=== PATIENT | male | born 1995 | race Caucasian/White ===

== ENCOUNTER 2025-06-20 13:37 | Emergency (ER) | payer MEDICAID ==
[~2025-06-20] VITALS: Ht 172.7 cm; Wt 60.0 kg
[2025-06-20 13:49] VITALS: TEMP 36.7
[2025-06-20 15:34] LABS: BASOPHILS % 0.3 % (0.0-2.0); EOSINOPHILS % 4.8 % (0.0-5.0); HEMATOCRIT. 52.4 % (42.0-52.0); HEMOGLOBIN. 17.3 g/dL (14.0-18.0); LYMPHOCYTES % 14.7 % (20.0-50.0); MEAN PLATELET VOLUME 8.9 fl (7.4-10.4); MONOCYTES % 9.4 % (2.0-8.0); NEUTROPHILS % 70.8 % (40.0-76.0); PLATELET 160 x1000/uL (130-400); RED BLOOD CELL COUNT 6.01 mill/uL (4.7-6.1); RED CELL DISTRIBUTION WIDTH 12.8 % (11.6-14.6)
[2025-06-20] MEDS: IPRATROPIUM BROMIDE (0.02%) 0.5MG/2.5ML NEB HHN SCH (15:35)
[2025-06-20] MEDS: ALBUTEROL (0.083%) 2.5MG/3ML NEB HHN SCH (15:35)
[2025-06-20 15:37] VITALS: PULSE 95; RESP 17; O2SAT 97
[2025-06-20 15:51] LABS: CREATININE 0.9 mg/dL (0.6-1.3); PROTEIN TOTAL 8.4 g/dL (6.0-8.3); UREA NITROGEN BLOOD 7 mg/dL (9-23)
[2025-06-20 15:53] LABS: ASPARTATE AMINOTRANSFERASE 23 IU/L (<34); BILIRUBIN DIRECT 0.1 mg/dL (<=3.0); BILIRUBIN TOTAL 0.7 mg/dL (0.1-1.0)
[2025-06-20 16:04] VITALS: PULSE 98; RESP 16; O2SAT 100
[2025-06-20] MEDS: DEXAMETHASONE 4MG TABLET PO ONE (16:27)
[2025-06-20] MEDS: IBUPROFEN 600MG TABLET PO ONE (16:27)
[2025-06-20 16:34] VITALS: PULSE 103; RESP 16; O2SAT 100
[2025-06-20] MEDS ORDERED: ONDA-239 PO (18:07)
[2025-06-20] MEDS ORDERED: ALBU18HF2 IH (18:07)
[2025-06-20] MEDS ORDERED: IBUP-1455 MT (18:07)
[2025-06-20] MEDS ORDERED: BENZ200C52 MT (18:07)
[2025-06-20] MEDS: BENZONATATE 200MG CAPSULE PO ONE (18:09)
[2025-06-20 18:18] LABS: INFLUENZA TYPE A Presumptive Negative (Pres. Neg.)
[2025-06-20 18:19] LABS: INFLUENZA TYPE B Presumptive Negative (Pres. Neg.)
[2025-06-20 18:20] LABS: RESPIRATORY SYNCYTIAL VIRUS Not Detected (Not Detectd)
[2025-06-20 18:22] VITALS: BP 123/87; PULSE 68; RESP 16; O2SAT 100
== END 2025-06-20 18:25 | disposition home or self-care (01) ==
LOC: ER 13:37
DX: J06.9 Acute upper respiratory infection, unspecified (principal); B97.89 Other viral agents as the cause of diseases classified elsewhere; R06.2 Wheezing; R11.0 Nausea; Z79.899 Other long term (current) drug therapy
CPT/HCPCS: 80076; 80048; 85025; 87420; 87804 ×2; 36415; 71045; 94640; 99285; J8540; Z7610 ×3; 94070; 94664